=== PATIENT | male | born 1985 | race Caucasian/White ===

== ENCOUNTER 2019-02-21 14:07 | Emergency (ER) | payer OTHER ==
[~2019-02-21] VITALS: Ht 180.3 cm; Wt 97.3 kg
[2019-02-21 15:30] VITALS: BP 120/86
[2019-02-21] MEDS ORDERED: COLA100C5 PO (15:47)
[2019-02-21] MEDS ORDERED: PROC2.5C3 TOP (15:47)
[2019-02-21] MEDS ORDERED: MIRA3350 PO (15:47)
== END 2019-02-21 15:52 | disposition home or self-care (01) ==
LOC: M ED 14:07
DX: K59.00 Constipation, unspecified (principal); K64.9 Unspecified hemorrhoids; F17.210 Nicotine dependence, cigarettes, uncomplicated

== ENCOUNTER 2019-06-13 10:17 | Emergency (ER) | payer OTHER ==
[~2019-06-13] VITALS: Ht 180.3 cm; Wt 95.0 kg
[~2019-06-13 10:17] MED LIST: COLA100C5 PO; MIRA3350 PO; PROC2.5C3 TOP
[2019-06-13] MEDS ORDERED: COLA100C5 PO (11:34)
[2019-06-13 11:53] VITALS: BP 116/78
== END 2019-06-13 11:55 | disposition home or self-care (01) ==
LOC: M ED 10:17
DX: K59.00 Constipation, unspecified (principal); K64.9 Unspecified hemorrhoids; K62.5 Hemorrhage of anus and rectum; Z72.0 Tobacco use

== ENCOUNTER → 2023-01-04 | Outpatient (CLI) | payer OTHER | LOC: M PLAIMG 10:54 | PROVIDERS: ATTEND Nurse Practitioner Family | DX: R06.02 Shortness of breath (principal); R09.81 Nasal congestion; J01.80 Other acute sinusitis; R06.2 Wheezing ==